=== PATIENT | female | born 1980 | race Caucasian/White ===

== ENCOUNTER 2018-12-08 04:59 | Day surgery (SDC) | payer OTHER ==
[2018-12-07 08:18] VITALS: BMI 23.0
[2018-12-08] MEDS ORDERED: LIDOCAINE 1%-EPI 1:100,000 30 ML MDV IJ ONE (07:33)
[2018-12-08] MEDS ORDERED: BUPIVACAINE HCL/PF 0.5% (5MG/ML) 10 ML VIAL ONE (07:34)
[2018-12-08] MEDS ORDERED: PROPOFOL 20 ML ONE (08:01)
[2018-12-08] MEDS ORDERED: MIDAZOLAM HCL 2 MG/2 ML SINGLE DOSE VIAL ONE (08:01)
--- NOTE | 2018-12-08 08:09 | HP ---
Satellite [facility] - Chief Complaint Chief Complaint: LEFT KNEE PAIN History Source: Patient - Past Medical History Allergies/Adverse Reactions: Allergies Allergy/AdvReac Type Severity Reaction Status Date / Time amoxicillin [Amoxicillin] Allergy Verified 12/08/18 06:33 cephalexin monohydrate Allergy Verified 12/08/18 06:33 [From Keflex] erythromycin base Allergy Verified 12/08/18 06:33 [Erythromycin Base] Sulfa (Sulfonamide Allergy Verified 12/08/18 06:33 Antibiotics) ...LMP: 11/24/18 - Current Medications Current Medications: Home Medications Medication Instructions Recorded Norgestimate-Ethinyl Estradiol 1 each PO DAILY 12/09/13 [Ortho Tri-Cyclen] Zolpidem Tartrate [Ambien] 5 mg PO PRN PRN 12/09/13 Multivitamin [One-Daily 1 each PO DAILY 12/07/18 Multi-Vitamin] Satellite Physical Exam - Physical Examination Vital Signs: Vital Signs Period Temp Pulse Resp BP Sys/Cummins Pulse Ox Last 24 Hr 97.4 F 73 16 99/62 99 Extremities: Other (+ LATERAL PATELLA TENDERNESS) Satellite Impression/Plan - Impression/Plan Impression: INTERNAL DERANGEMENT LEFT KNEE Operative Procedure: ARTHROSCOPY LEFT KNEE WITH LATERAL RELEASE Date to be Performed: 12/08/18
[2018-12-08] MEDS ORDERED: CLINDAMYCIN 600 MG PREMIX BAG IVPB ONE (08:15)
[2018-12-08] MEDS ORDERED: CLINDAMYCIN PHOSPHATE 600 MG/4 ML VIAL ONE (08:26)
--- NOTE | 2018-12-08 09:03 | OP ---
Operative Note - Note: Operative Date: 12/08/18 Pre-Operative Diagnosis: left knee patella femoral malalignment, knee pain Operation: left knee arthroscopy, lateral release, synovectomy, debridement chondroplasty Post-Operative Diagnosis: Same as Pre-op Surgeon: Misha Aguilera Crm Administrator: Syed Saunders Anesthesiologist/FINANCIAL ADMINISTRATION OFFICER: Yenifer Leung Anesthesia: General, Local Specimens Removed: shavings Estimated Blood Loss (mls): 0 Blood Volume Replaced (mls): 0 Fluid Volume Replaced (mls): 500 Operative Report Dictated: Yes
[2018-12-08] MEDS ORDERED: ONDANSETRON 4 MG/2 ML VIAL ONE (09:19)
[2018-12-08 09:57] VITALS: TEMP 98.1
[2018-12-08] MEDS ORDERED: oxyCODONE HCL 5 MG TABLET PO PRN (10:32)
[2018-12-08] MEDS ORDERED: ONDANSETRON 4 MG/2 ML VIAL IVPUSH PRN (10:32)
[2018-12-08] MEDS ORDERED: LACTATED RINGERS SOLUTION 1,000 ML IV SCH (10:45)
[2018-12-08 11:35] VITALS: BP 91/47; PULSE 52
--- NOTE | 2018-12-09 15:21 | OP ---
DATE OF OPERATION: 12/08/2018 DATE OF DICTATION: 12/08/2018 PREOPERATIVE DIAGNOSIS: Left knee patellofemoral pain. POSTOPERATIVE DIAGNOSIS: Left knee patellofemoral pain. PROCEDURE: Left knee arthroscopy, arthroscopic lateral release, and arthroscopic synovectomy. SURGEON: Gila Aguilera MD [employer] SALESPERSON: Syed Saunders MD ANESTHESIOLOGIST: CASEY Leung ANESTHESIA: LMA anesthesia and 20 mL intra-articular injection of 0.5% Marcaine. DRAINS: None. COMPLICATIONS: None. BLOOD LOSS: None. BLOOD GIVEN: None. FLUID REPLACEMENT: 500 mL INDICATION FOR PROCEDURE: This patient is a 38-year-old female with a preoperative diagnosis of left knee pain and patellofemoral malalignment. After understanding the potential risks, complications, alternatives, and benefits to surgical versus non-surgical treatment, the patient elected to undergo this procedure. PROCEDURE: The patient was brought to the operating room, peripheral IV placed, and IV sedation given. Clindamycin 600 mg was given. LMA anesthesia was induced. Ample Webril was placed around the left thigh including the Styrofoam ring. She was placed into the C-clamp leg david with ample padding throughout. The left lower extremity was prepped and draped in sterile fashion, elevated, exsanguinated with an Esmarch bandage, and tourniquet inflated to 250 mmHg. A superior medial outflow portal was established. A lateral portal was established. Using a spinal needle, a medial portal was established under direct visualization and a diagnostic arthroscopy was performed. The medial compartment was seen to be pristine. There was no osteoarthritis and the medial meniscus looked good. Photographs were taken. The intracondylar notch looked good. There was some excessive synovium/synovitis. This was removed. The ACL looked good. I probed it. It had the appropriate tension. Photographs were taken. The lateral compartment also looked pristine. The lateral meniscus looked good, as did the lateral femoral condyle and lateral tibial plateau. Photographs were taken. Next, the patellofemoral joint was directly visualized. The femoral trochlea looked good. There was patellofemoral malalignment. I would rate it as moderate and not severe. 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 This was debrided with the shaver. After the debridement chondroplasty, a spinal needle was utilized superior laterally for marking our location and beginning point of the lateral release. Under direct visualization, I used the ArthroCare wand to do an arthroscopic lateral release of the lateral tissue. I cauterized it once the release was done. I pushed the patella more medially. It seemed to sit in the trochlea quite nicely. Photographs were taken. The area was cauterized a bit more. Again, the kneecap was manipulated to try to get it more medial. Additional synovitis was removed. Next, all instrumentation was removed. All excess saline was removed. The arthroscopy portals were closed with 3-0 nylon sutures. Next, 20 mL of 0.5% Marcaine was introduced into the joint. Again, I did a manipulation of the patella to get it more medial. The area was then washed and dried, covered with Xeroform gauze, 4 x 4 gauze, Webril, and Nahum bandage. The tourniquet was taken down after a total tourniquet time of 18 minutes. There were no complications. The patient tolerated the procedure well and was brought to the ambulatory recovery room in stable condition. Syed Saunders MD, dictating for MD GILA Herman M.D. [id number]
--- NOTE | 2018-12-09 17:33 | PATH ---
Surgical Pathology Report Patient Name: MIN ALLEN [facility]. Rec. #: [id number] /Age/Gender: 1980 (Age: 38) / F Account: [id number] Location: [facility] Taken: 12/08/2018 Received: 12/08/2018 Reported: 12/09/2018 Physicians: Latosha Mansfield M.D. Specimen(s) Received LEFT KNEE SHAVINGS Clinical History Patellar femoral malalignment Final Diagnosis KNEE SHAVINGS, LEFT, ARTHROSCOPY WITH LATERAL RELEASE AND SYNOVECTOMY: FRAGMENTS OF DENSE FIBROCONNECTIVE TISSUE, ADIPOSE TISSUE, AND SYNOVIUM. Electronically Signed Monserrat Ortez M.D. Gross Description Received in formalin, labeled "left knee shavings," is a 0.0 x 4.5 x 0.6 cm. aggregate of kurtz-yellow soft tissue fragments. A public utilities sales representative portion is submitted in one cassette. /12/08/2018 [facility]12/08/2018
== END 2018-12-08 11:52 | disposition home or self-care (01) ==
LOC: JASU-SURG 04:59
PROVIDERS: ATTEND Orthopaedic Surgery
PROC: 0SBD4ZZ Excision of Left Knee Joint, Percutaneous Endoscopic Approach (ICD-10-PCS; 2018-12-08)
PROC: 0MNP4ZZ Release Left Knee Bursa and Ligament, Percutaneous Endoscopic Approach (ICD-10-PCS; principal; 2018-12-08 08:00)
DX: M22.2X2 Patellofemoral disorders, left knee (principal); M65.862 Other synovitis and tenosynovitis, left lower leg; M22.42 Chondromalacia patellae, left knee; M17.12 Unilateral primary osteoarthritis, left knee; M25.562 Pain in left knee
CPT/HCPCS: 84703; 88304-TC; 94760